=== PATIENT | male | born 1970 | race Caucasian/White ===

== ENCOUNTER → 2023-01-22 | Outpatient (CLI) | payer OTHER | LOC: RESP 16:21 | PROVIDERS: ATTEND Internal Medicine Critical Care Medicine | DX: R06.02 Shortness of breath (principal); R05.3 Chronic cough; J04.0 Acute laryngitis; G47.33 Obstructive sleep apnea (adult) (pediatric) | CPT/HCPCS: 94060; 94727; 94729 ==